=== PATIENT | female | born 1980 | race Caucasian/White ===

== ENCOUNTER 2021-04-17 16:06 | Outpatient (CLI) | payer BC | END 2021-04-17 16:07 | disposition home or self-care (01) | LOC: CSHLAB 16:06 | PROVIDERS: ATTEND Obstetrics & Gynecology | DX: Z01.812 Encounter for preprocedural laboratory examination (principal); Z20.822 Contact with and (suspected) exposure to COVID-19 | CPT/HCPCS: 80053; 84703; 85027; 86850; 86900; 86901; U0003; U0005 ==

== ENCOUNTER 2021-04-22 09:04 | Day surgery (SDC) | payer BC ==
[2021-04-17 14:13] VITALS: BMI 29.5
[2021-04-17 17:51] LABS: BHCG - Serum Negative (NEGATIVE); Pregs Control Background? CLEAR/WHITE (CLR/WHITE); Pregs Control Bar Appear? YES (CONTROL BAR)
[2021-04-17 17:58] LABS: ALT (SGPT) 195 U/L (8-55); AST (SGOT) 83 U/L (5-34); Albumin 4.3 g/dL (3.5-5.0); Alkaline Phosphatase 79 U/L (40-110); Anion Gap 12 mmol/L (10-20); BUN (Urea Nitrogen) 9 mg/dL (7.0-18.7); Bilirubin, Total 0.4 mg/dL (0.2-1.2); Calc. Creatinine Clearance 0 mL/min (70-130); Calcium 9.5 mg/dL (7.8-10.44); Carbon Dioxide 26 mmol/L (22-29); Chloride 107 mmol/L (98-107); Globulin 3.8 g/dL (2.4-3.5); Glucose 108 mg/dL (70-105); Potassium 3.9 mmol/L (3.5-5.1); Protein, Total 8.1 g/dL (6.0-8.3); Sodium 141 mmol/L (136-145)
[2021-04-17 18:01] LABS: Hemoglobin 11.1 g/dL (12.0-15.5); Mean Corpuscular HGB CONC 29.1 g/dL (32.0-36.0); Mean Corpuscular Hemoglobin 23.9 pg (27.0-33.0); Mean Corpuscular Volume 82.2 fl (81.6-98.3); Mean Platelet Volume 10.1 fl (7.4-10.4); Platelet Count 343 10x3/uL (150-450); Red Blood Cell (RBC) Count 4.65 10x6/uL (3.90-5.03); White Blood Cell (WBC) Count 6.4 10x3/uL (3.5-10.5)
[2021-04-18 12:04] LABS: SARS-CoV-2 PCR by NAA Not Detected (NotDetected)
[2021-04-22] MEDS ORDERED: Lidocaine 1% MPF 2 ML VIAL ONE (09:10)
[2021-04-22] MEDS ORDERED: Gabapentin 300 MG CAP ONE (09:10)
[2021-04-22] MEDS ORDERED: Famotidine/PF 20 mg/2ml Vial ONE (09:11)
[2021-04-22] MEDS ORDERED: Lidocaine 1% PF 5 ML VIAL ONE (09:33)
[2021-04-22] MEDS ORDERED: Ondansetron PF 4 MG/2 ML Vial ONE (09:33)
[2021-04-22] MEDS ORDERED: PROPOFOL 20 ML ONE (09:33)
[2021-04-22] MEDS ORDERED: Dexamethasone 4 mg/ml Vial ONE (09:33)
[2021-04-22] MEDS ORDERED: Rocuronium Bromide 10 MG/ML (10ML VIAL) ONE (09:33)
[2021-04-22] MEDS ORDERED: Fentanyl 100 MCG/2 ML VIAL ONE ×3 (09:34→12:28)
[2021-04-22] MEDS ORDERED: Bupivacaine PF 0.5% 30 ML VIAL ONE (09:43)
[2021-04-22] MEDS ORDERED: EPINEPHrine 1 MG/ML AMP ONE (09:43)
[2021-04-22] MEDS ORDERED: Scopolamine 1.5 mg/72 hour Patch ONE (10:19)
[2021-04-22] MEDS ORDERED: Metoclopramide HCl 10 MG/2 ML VIAL ONE ×2 (10:56→15:02)
[2021-04-22] MEDS ORDERED: Glycopyrrolate 0.2 MG/ML 5 ML SYRINGE ONE (11:56)
[2021-04-22] MEDS ORDERED: Ketorolac Tromethamine 30 MG/ML VIAL ONE (11:56)
[2021-04-22] MEDS ORDERED: HYDROcodone/Acetaminophen 5/325 mg Tablet ONE ×2 (13:33→16:46)
[2021-04-22] MEDS ORDERED: HYDROcodone/Acetaminophen 10/325 mg Tablet ONE (13:40)
== END 2021-04-22 16:55 | disposition home or self-care (01) ==
LOC: CSHSDC 09:04
PROVIDERS: ATTEND Obstetrics & Gynecology
PROC: 0UT74ZZ Resection of Bilateral Fallopian Tubes, Percutaneous Endoscopic Approach (ICD-10-PCS; principal; 2021-04-22)
PROC: 0UT94ZZ Resection of Uterus, Percutaneous Endoscopic Approach (ICD-10-PCS; principal; 2021-04-22)
DX: D25.0 Submucous leiomyoma of uterus (principal); D25.1 Intramural leiomyoma of uterus; N72 Inflammatory disease of cervix uteri; N87.9 Dysplasia of cervix uteri, unspecified; K76.9 Liver disease, unspecified; I10 Essential (primary) hypertension; E03.9 Hypothyroidism, unspecified; Z79.899 Other long term (current) drug therapy; Z88.2 Allergy status to sulfonamides; Z20.822 Contact with and (suspected) exposure to COVID-19
CPT/HCPCS: 80053; 84703; 85027; 86850; 86900; 86901; 88307; J0171; J0690; J1100; J1885; J2405; J2704; J2765; J3010; S0020; S0028; U0003; U0005